=== PATIENT | female | born 1945 | race Caucasian/White ===

== ENCOUNTER 2018-08-13 05:47 | Inpatient (IN) ==
[2018-08-13] MEDS ORDERED: ceFAZolin 1,000 MG VIAL ONE (06:04)
[2018-08-13] MEDS ORDERED: VANCOMYCIN 1,000 MG VIAL ONE (06:04)
[2018-08-13] MEDS ORDERED: ROPIVACAINE 0.5% 30 ML VIAL ONE (06:30)
[2018-08-13] MEDS ORDERED: ceFAZolin 1,000 MG in SYRINGE 1 EACH IV ONE (06:30)
[2018-08-13] MEDS ORDERED: VANCOMYCIN INJ 1,000 MG in SODIUM CHLORIDE 0.9% 250 ML IV ONE (06:30)
[2018-08-13] MEDS: LACTATED RINGERS 1,000 ML IV SCH ×2 (06:35→08:31)
[2018-08-13] MEDS ORDERED: LACTULOSE 20 GM/30 ML UDCUP PO PRN (07:14)
[2018-08-13] MEDS ORDERED: MORPHINE 4 MG/1 ML VIAL IV PRN (07:14)
[2018-08-13] MEDS ORDERED: PROMETHAZINE 25 MG/1 ML VIAL IM PRN (07:14)
[2018-08-13] MEDS ORDERED: BISACODYL 10 MG SUPP RECTAL PRN (07:14)
[2018-08-13] MEDS ORDERED: MAGNESIUM HYDROXIDE SUSP 30 ML UDCUP PO PRN (07:14)
[2018-08-13] MEDS ORDERED: ONDANSETRON 4 MG/2 ML VIAL IV PRN (07:14)
[2018-08-13] MEDS ORDERED: NALOXONE 0.4 MG/ML VIAL IV PRN (07:14)
[2018-08-13] MEDS ORDERED: TEMAZEPAM 7.5 MG CAPSULE PO PRN (07:14)
[2018-08-13] MEDS ORDERED: diphenhydrAMINE CAP 25 MG CAPSULE PO PRN (07:14)
[2018-08-13] MEDS ORDERED: PROMETHAZINE 25 MG TABLET PO PRN ×2 (07:17)
[2018-08-13] MEDS ORDERED: TRANEXAMIC ACID 1,000 MG/10 ML VIAL ONE (07:45)
[2018-08-13] MEDS ORDERED: BUPIVACAINE SPINAL 0.75% 2 ML AMP SPINAL ONE (07:46)
[2018-08-13 08:36] LABS: Apearance,Urine CLEAR (Clear); Bilirubin,Urine Negative (Negative); Blood, Urine Negative (Negative); Glucose,Urine (UA) Negative (Negative); Ketones,Urine 5 mg/dL (Negative); Mucus,Urine Occasional /LPF (Occasional); Nitrite,Urine Negative (Negative); Protein,Urine Negative; RBC,Urine <1 /HPF (0-4); Urine Color Yellow (Yellow); Urine Specific Gravity 1.011 (1.001-1.035); Urine Urobilinogen < 2.0 EU/DL (0.2-1.0)
[2018-08-13] MEDS ORDERED: fentaNYL 100 MCG/2 ML VIAL ONE (09:12)
[2018-08-13] MEDS ORDERED: MIDAZOLAM 2 MG/2 ML VIAL ONE (09:12)
[2018-08-13] MEDS ORDERED: SEVOFLURANE 1 UNIT/15 MINUTE INH ONE (09:12)
[2018-08-13] MEDS ORDERED: PROPOFOL 200 MG/20 ML VIAL IV ONE ×2 (09:12→09:13)
[2018-08-13] MEDS ORDERED: LACTATED RINGERS 1,000 ML IV ONE (09:13)
[2018-08-13] MEDS ORDERED: PHENYLEPHRINE 1 MG/10 ML SYRINGE IV ONE (09:13)
[2018-08-13] MEDS ORDERED: GLYCOPYRROLATE 0.4 MG/2 ML VIAL ONE (09:13)
[2018-08-13] MEDS ORDERED: NEOSTIGMINE 10 MG/10 ML VIAL ONE (09:13)
[2018-08-13] MEDS ORDERED: ROCURONIUM 100 MG/10 ML VIAL IV ONE (09:13)
[2018-08-13] MEDS ORDERED: MORPHINE PCA 30 MG/30 ML SYRINGE IV ONE (09:29)
[2018-08-13] MEDS: MORPHINE PCA 30 MG/30 ML SYRINGE IV SCH (09:35)
[2018-08-13] MEDS: clonazePAM 0.5 MG TABLET PO SCH ×2 (10:13→20:30)
[2018-08-13] MEDS: FAMOTIDINE 20 MG TABLET PO SCH (10:13)
[2018-08-13] MEDS: METOPROLOL TARTRATE 25 MG TABLET PO SCH ×2 (10:14→20:30)
[2018-08-13] MEDS: DULoxetine 30 MG CAPSULE PO SCH (10:14)
[2018-08-13] MEDS: DOCUSATE SODIUM 100 MG CAPSULE PO SCH ×2 (10:14→20:30)
[2018-08-13] MEDS: SIMVASTATIN 40 MG TABLET PO SCH (10:14)
[2018-08-13] MEDS: FLUTICASONE 50 MCG NASAL SPRAY 16 GM BOTTLE BOTH NARES SCH (10:16)
[2018-08-13] MEDS: ceFAZolin 1,000 MG in SYRINGE 1 EACH IV SCH ×2 (14:00→22:44)
[2018-08-13] MEDS: FONDAPARINUX 2.5 MG/0.5 ML SYRINGE SUBCUT SCH (20:30)
[2018-08-13] MEDS: cloNIDine 0.1 MG TABLET PO SCH (20:30)
[2018-08-14] MEDS: LACTATED RINGERS 1,000 ML IV SCH ×2 (03:59→17:46)
[2018-08-14 05:45] LABS: Basophils # 0.1 10*3/uL (0.0-0.2); Basophils % 0.5 % (0.0-0.8); Eosinophils % 0.4 % (0.00-10.9); Hematocrit 27.1 VOL% (35.7-47.0); Immature Granulocytes % 0.4 %; Immature Granulocytes Absolute 0.04 #; Lymphocytes # 1.2 10*3/uL (1.4-4.0); Lymphocytes % 12.3 % (21.3-54.2); Mean Corpuscular HGB Conc 33.2 GM/DL (32-36); Mean Corpuscular Hemoglobin 32 PG (27-34); Mean Corpuscular Volume 97.1 FL (87-102); Mean Platelet Volume 10.1 FL (9.6-12.0); Monocytes # 1.2 10*3/uL (0.11-0.8); Monocytes % 12.6 % (1.7-12.7); Neutrophils # 7.2 10*3/uL (1.4-7.4); Neutrophils % 73.8 % (38.7-73.9); Platelet Count 263 T/CUMM (130-400); Red Blood Count 2.79 MC/CUMM (3.8-5.5); Red Cell Distribution Width 12.9 % (9.3-17.3); White Blood Count 9.7 T/CUMM (4-12)
[2018-08-14 06:05] LABS: Osmolality,Calculated 261.5 MOS/KG (273-304)
[2018-08-14] MEDS ORDERED: MORPHINE 4 MG/1 ML VIAL IV PRN ×2 (07:24→07:30)
[2018-08-14] MEDS: DULoxetine 30 MG CAPSULE PO SCH (09:13)
[2018-08-14] MEDS: DOCUSATE SODIUM 100 MG CAPSULE PO SCH ×2 (09:13→20:41)
[2018-08-14] MEDS: clonazePAM 0.5 MG TABLET PO SCH ×2 (09:14→20:41)
[2018-08-14] MEDS: FAMOTIDINE 20 MG TABLET PO SCH (09:15)
[2018-08-14] MEDS: METOPROLOL TARTRATE 25 MG TABLET PO SCH ×2 (09:15→20:41)
[2018-08-14] MEDS: FLUTICASONE 50 MCG NASAL SPRAY 16 GM BOTTLE BOTH NARES SCH (09:16)
[2018-08-14] MEDS: SIMVASTATIN 40 MG TABLET PO SCH (09:16)
[2018-08-14] MEDS: MORPHINE PCA 30 MG/30 ML SYRINGE IV SCH (11:35)
[2018-08-14] MEDS: FONDAPARINUX 2.5 MG/0.5 ML SYRINGE SUBCUT SCH (20:41)
[2018-08-14] MEDS: traZODone 50 MG TABLET PO PRN (20:41)
[2018-08-14] MEDS: cloNIDine 0.1 MG TABLET PO SCH (20:41)
[2018-08-15 05:37] LABS: Basophils % 0.3 % (0.0-0.8); Eosinophils % 0.1 % (0.00-10.9); Hematocrit 23.1 VOL% (35.7-47.0); Hemoglobin 7.9 GM/DL (12.0-16.0); Immature Granulocytes % 0.5 %; Immature Granulocytes Absolute 0.06 #; Lymphocytes # 0.7 10*3/uL (1.4-4.0); Lymphocytes % 6.1 % (21.3-54.2); Mean Corpuscular HGB Conc 34.2 GM/DL (32-36); Mean Corpuscular Hemoglobin 33 PG (27-34); Mean Corpuscular Volume 95.5 FL (87-102); Mean Platelet Volume 10.5 FL (9.6-12.0); Monocytes # 1.3 10*3/uL (0.11-0.8); Neutrophils # 9.6 10*3/uL (1.4-7.4); Platelet Count 233 T/CUMM (130-400); Red Blood Count 2.42 MC/CUMM (3.8-5.5); Red Cell Distribution Width 12.7 % (9.3-17.3); White Blood Count 11.7 T/CUMM (4-12)
[2018-08-15] MEDS: clonazePAM 0.5 MG TABLET PO SCH ×2 (08:49→21:07)
[2018-08-15] MEDS: DULoxetine 30 MG CAPSULE PO SCH (08:49)
[2018-08-15] MEDS: DOCUSATE SODIUM 100 MG CAPSULE PO SCH ×2 (08:49→21:08)
[2018-08-15] MEDS: METOPROLOL TARTRATE 25 MG TABLET PO SCH ×2 (08:49→21:08)
[2018-08-15] MEDS: FAMOTIDINE 20 MG TABLET PO SCH (08:49)
[2018-08-15] MEDS: SIMVASTATIN 40 MG TABLET PO SCH (08:50)
[2018-08-15] MEDS: FLUTICASONE 50 MCG NASAL SPRAY 16 GM BOTTLE BOTH NARES SCH (08:53)
[2018-08-15] MEDS ORDERED: SODIUM CHLORIDE 0.9% 1,000 ML IV PRN (10:39)
[2018-08-15] MEDS: LACTATED RINGERS 1,000 ML IV SCH (11:59)
[2018-08-15] MEDS: FONDAPARINUX 2.5 MG/0.5 ML SYRINGE SUBCUT SCH (21:07)
[2018-08-15] MEDS: cloNIDine 0.1 MG TABLET PO SCH (21:08)
[2018-08-15] MEDS: traZODone 50 MG TABLET PO PRN (21:08)
[2018-08-16 05:01] LABS: Basophils % 0.1 % (0.0-0.8); Eosinophils # 0.1 10*3/uL (0.0-0.87); Eosinophils % 0.8 % (0.00-10.9); Hematocrit 28.5 VOL% (35.7-47.0); Hemoglobin 9.8 GM/DL (12.0-16.0); Immature Granulocytes % 0.4 %; Immature Granulocytes Absolute 0.04 #; Lymphocytes # 0.9 10*3/uL (1.4-4.0); Lymphocytes % 9.5 % (21.3-54.2); Mean Corpuscular HGB Conc 34.4 GM/DL (32-36); Mean Corpuscular Hemoglobin 32 PG (27-34); Mean Corpuscular Volume 92.2 FL (87-102); Mean Platelet Volume 10.3 FL (9.6-12.0); Monocytes % 10.5 % (1.7-12.7); Neutrophils # 7.3 10*3/uL (1.4-7.4); Neutrophils % 78.7 % (38.7-73.9); Platelet Count 218 T/CUMM (130-400); Red Blood Count 3.09 MC/CUMM (3.8-5.5); Red Cell Distribution Width 13.5 % (9.3-17.3); White Blood Count 9.3 T/CUMM (4-12)
[2018-08-16] MEDS: METOPROLOL TARTRATE 25 MG TABLET PO SCH (09:29)
[2018-08-16] MEDS: DOCUSATE SODIUM 100 MG CAPSULE PO SCH (09:29)
[2018-08-16] MEDS: FAMOTIDINE 20 MG TABLET PO SCH (09:29)
[2018-08-16] MEDS: SIMVASTATIN 40 MG TABLET PO SCH (09:29)
[2018-08-16] MEDS: clonazePAM 0.5 MG TABLET PO SCH (09:29)
[2018-08-16] MEDS: DULoxetine 30 MG CAPSULE PO SCH (09:29)
[2018-08-16] MEDS: FLUTICASONE 50 MCG NASAL SPRAY 16 GM BOTTLE BOTH NARES SCH (09:37)
[2018-08-16 11:08] VITALS: BP 145/80
== END 2018-08-16 12:05 | disposition swing bed (61) | DRG 470 ==
LOC: N.SDSINP 05:47 → N.3E 09:24
PROVIDERS: ADMIT Orthopaedic Surgery; ATTEND Orthopaedic Surgery

== ENCOUNTER 2019-05-20 10:24 | Inpatient (IN) ==
[2019-05-20] MEDS ORDERED: ONDANSETRON 4 MG/2 ML VIAL IV PRN (11:41)
[2019-05-20] MEDS: SODIUM CHLORIDE 0.9% 1,000 ML IV SCH ×2 (12:38→22:42)
[2019-05-20 12:50] LABS: Basophils # 0.2 10*3/uL (0.0-0.2); Basophils % 0.7 % (0.0-0.8); Hemoglobin 11.7 GM/DL (12.0-16.0); Immature Granulocytes % 4.2 %; Immature Granulocytes Absolute 0.96 #; Lymphocytes # 0.4 10*3/uL (1.4-4.0); Lymphocytes % 1.9 % (21.3-54.2); Mean Corpuscular HGB Conc 34.4 GM/DL (32-36); Mean Corpuscular Volume 90.9 FL (87-102); Mean Platelet Volume 9.6 FL (9.6-12.0); Monocytes % 10.6 % (1.7-12.7); Neutrophils % 82.6 % (38.7-73.9); Platelet Count 356 T/CUMM (130-400); Red Blood Count 3.74 MC/CUMM (3.8-5.5); Red Cell Distribution Width 12.2 % (9.3-17.3); White Blood Count 22.8 T/CUMM (4-12)
[2019-05-20 13:11] LABS: Albumin 2.1 G/DL (3.4-5.0); Bilirubin,Total 0.7 MG/DL (0.2-1.0); Calcium 8.4 MG/DL (8.5-10.1); Osmolality,Calculated 260.4 MOS/KG (273-304); Total Protein 5.8 G/DL (6.4-8.3)
[2019-05-20 13:20] LABS: Band Neutrophils 1 % (0-10); Burr Cells Slight; Lymphocytes 1 % (20-55); Segmented Neutrophils 88 % (50-85); Total Cells Counted 100
[2019-05-20 13:21] LABS: Elliptocytes Few; Platelet Estimate Normal; Polychromasia Slight
[2019-05-21] MEDS: VANCOMYCIN 50 MG/ML 60 ML/BOTTLE PO SCH ×5 (00:04→23:40)
[2019-05-21 05:20] LABS: Basophils # 0.1 10*3/uL (0.0-0.2); Basophils % 0.6 % (0.0-0.8); Eosinophils # 0.1 10*3/uL (0.0-0.87); Eosinophils % 0.3 % (0.00-10.9); Hematocrit 29.2 VOL% (35.7-47.0); Hemoglobin 10.2 GM/DL (12.0-16.0); Immature Granulocytes % 3.5 %; Immature Granulocytes Absolute 0.61 #; Lymphocytes # 0.7 10*3/uL (1.4-4.0); Lymphocytes % 3.7 % (21.3-54.2); Mean Corpuscular HGB Conc 34.9 GM/DL (32-36); Mean Corpuscular Volume 90.7 FL (87-102); Mean Platelet Volume 9.6 FL (9.6-12.0); Neutrophils % 82.9 % (38.7-73.9); Platelet Count 349 T/CUMM (130-400); Red Blood Count 3.22 MC/CUMM (3.8-5.5); Red Cell Distribution Width 12.4 % (9.3-17.3); White Blood Count 17.5 T/CUMM (4-12)
[2019-05-21 05:41] LABS: Albumin 1.8 G/DL (3.4-5.0); Bilirubin,Total 0.8 MG/DL (0.2-1.0); Calcium 7.6 MG/DL (8.5-10.1); Osmolality,Calculated 263.8 MOS/KG (273-304); Risk Ratio 5.69; Total Protein 4.9 G/DL (6.4-8.3); VLDL CHOLESTEROL 27.6 MG/DL
[2019-05-21 05:44] LABS: Band Neutrophils 3 % (0-10); Lymphocytes 1 % (20-55); Segmented Neutrophils 89 % (50-85); Total Cells Counted 100
[2019-05-21 05:45] LABS: Platelet Estimate Normal; Polychromasia Few
[2019-05-21] MEDS: PANTOPRAZOLE 40 MG TABLET PO SCH (08:28)
[2019-05-21] MEDS: SODIUM CHLORIDE 0.9% 1,000 ML IV SCH ×2 (08:29→16:48)
[2019-05-22] MEDS: SODIUM CHLORIDE 0.9% 1,000 ML IV SCH ×2 (00:15→09:50)
[2019-05-22] MEDS: VANCOMYCIN 50 MG/ML 60 ML/BOTTLE PO SCH ×3 (07:00→18:02)
[2019-05-22 08:30] LABS: Basophils # 0.1 10*3/uL (0.0-0.2); Basophils % 0.5 % (0.0-0.8); Eosinophils % 0.2 % (0.00-10.9); Hematocrit 29.9 VOL% (35.7-47.0); Immature Granulocytes % 3.5 %; Immature Granulocytes Absolute 0.62 #; Lymphocytes # 0.6 10*3/uL (1.4-4.0); Lymphocytes % 3.6 % (21.3-54.2); Mean Corpuscular HGB Conc 33.4 GM/DL (32-36); Mean Corpuscular Volume 93.4 FL (87-102); Mean Platelet Volume 8.8 FL (9.6-12.0); Monocytes % 7.4 % (1.7-12.7); Neutrophils % 84.8 % (38.7-73.9); Platelet Count 371 T/CUMM (130-400); Red Cell Distribution Width 12.9 % (9.3-17.3); White Blood Count 17.6 T/CUMM (4-12)
[2019-05-22 08:45] LABS: Band Neutrophils 6 % (0-10); Hypochromasia 1+; Lymphocytes 3 % (20-55); Platelet Estimate Adequate; Segmented Neutrophils 84 % (50-85); Total Cells Counted 100
[2019-05-22 08:53] LABS: Albumin 1.6 G/DL (3.4-5.0); Bilirubin,Total 0.8 MG/DL (0.2-1.0); Calcium 7.2 MG/DL (8.5-10.1); Osmolality,Calculated 265.2 MOS/KG (273-304); Total Protein 4.8 G/DL (6.4-8.3)
[2019-05-22] MEDS: PANTOPRAZOLE 40 MG TABLET PO SCH (09:50)
[2019-05-22] MEDS: POTASSIUM CHLORIDE 20 MEQ TABLET PO PRN ×3 (16:04→22:08)
[2019-05-23] MEDS: VANCOMYCIN 50 MG/ML 60 ML/BOTTLE PO SCH ×4 (00:39→17:45)
[2019-05-23] MEDS: SODIUM CHLORIDE 0.9% 1,000 ML IV SCH ×4 (00:39→16:00)
[2019-05-23] MEDS: POTASSIUM CHLORIDE 20 MEQ TABLET PO PRN (00:44)
[2019-05-23 06:38] LABS: Basophils # 0.1 10*3/uL (0.0-0.2); Basophils % 0.6 % (0.0-0.8); Eosinophils # 0.1 10*3/uL (0.0-0.87); Eosinophils % 0.5 % (0.00-10.9); Hematocrit 28.8 VOL% (35.7-47.0); Hemoglobin 9.8 GM/DL (12.0-16.0); Immature Granulocytes % 4.4 %; Immature Granulocytes Absolute 0.63 #; Lymphocytes # 0.7 10*3/uL (1.4-4.0); Lymphocytes % 4.5 % (21.3-54.2); Mean Platelet Volume 8.8 FL (9.6-12.0); Monocytes % 10.8 % (1.7-12.7); Neutrophils % 79.2 % (38.7-73.9); Platelet Count 359 T/CUMM (130-400); Red Blood Count 3.13 MC/CUMM (3.8-5.5); White Blood Count 14.5 T/CUMM (4-12)
[2019-05-23 07:02] LABS: Band Neutrophils 6 % (0-10); Calcium 7.7 MG/DL (8.5-10.1); Eosinophils 2 % (0-10); Hypochromasia Slight; Lymphocytes 2 % (20-55); Osmolality,Calculated 273.5 MOS/KG (273-304); Platelet Estimate Adequate; Segmented Neutrophils 82 % (50-85); Total Cells Counted 100
[2019-05-23] MEDS: PANTOPRAZOLE 40 MG TABLET PO SCH (08:17)
[2019-05-23] MEDS ORDERED: TUBERCULIN SKIN TEST 0.1 ML SYRINGE INTRADERM ONE (12:41)
[2019-05-24] MEDS: SODIUM CHLORIDE 0.9% 1,000 ML IV SCH ×3 (00:23→15:33)
[2019-05-24] MEDS: VANCOMYCIN 50 MG/ML 60 ML/BOTTLE PO SCH ×4 (00:25→17:35)
[2019-05-24 06:39] LABS: Basophils # 0.1 10*3/uL (0.0-0.2); Basophils % 0.5 % (0.0-0.8); Eosinophils # 0.1 10*3/uL (0.0-0.87); Eosinophils % 0.8 % (0.00-10.9); Hematocrit 29.6 VOL% (35.7-47.0); Immature Granulocytes % 8.9 %; Immature Granulocytes Absolute 0.91 #; Lymphocytes # 0.8 10*3/uL (1.4-4.0); Lymphocytes % 7.8 % (21.3-54.2); Mean Corpuscular HGB Conc 33.8 GM/DL (32-36); Mean Corpuscular Volume 92.8 FL (87-102); Mean Platelet Volume 9.2 FL (9.6-12.0); Monocytes % 9.5 % (1.7-12.7); Neutrophils % 72.5 % (38.7-73.9); Platelet Count 453 T/CUMM (130-400); Red Blood Count 3.19 MC/CUMM (3.8-5.5); Red Cell Distribution Width 13.1 % (9.3-17.3); White Blood Count 10.2 T/CUMM (4-12)
[2019-05-24 06:46] LABS: Calcium 7.2 MG/DL (8.5-10.1); Osmolality,Calculated 273.4 MOS/KG (273-304)
[2019-05-24 07:03] LABS: Anisocytosis 1+; Band Neutrophils 35 % (0-10); Lymphocytes 4 % (20-55); Platelet Estimate Normal; Poikilocytosis 1+; Segmented Neutrophils 56 % (50-85); Total Cells Counted 100
[2019-05-24] MEDS ORDERED: MAGNESIUM SULF RIDER 4 GM in PREMIX 1 EACH IV PRN (07:13)
[2019-05-24] MEDS: PANTOPRAZOLE 40 MG TABLET PO SCH (09:03)
[2019-05-24] MEDS: POTASSIUM CHLORIDE 20 MEQ TABLET PO PRN ×4 (09:03→17:35)
[2019-05-24] MEDS: MAGNESIUM SULF RIDER 2 GM in PREMIX 1 EACH IV PRN ×2 (09:03→12:25)
[2019-05-24] MEDS: DULoxetine 30 MG CAPSULE PO SCH (12:16)
[2019-05-24] MEDS: amLODIPine 5 MG TABLET PO SCH (12:16)
[2019-05-24] MEDS: buPROPion XL 150 MG TABLET PO SCH (12:16)
[2019-05-24] MEDS: clonazePAM 0.5 MG TABLET PO SCH (21:15)
[2019-05-24] MEDS: cloNIDine 0.1 MG TABLET PO SCH (21:16)
[2019-05-25] MEDS: POTASSIUM CHLORIDE 20 MEQ TABLET PO PRN ×2 (01:06→04:59)
[2019-05-25] MEDS: SODIUM CHLORIDE 0.9% 1,000 ML IV SCH ×3 (01:06→22:21)
[2019-05-25] MEDS: VANCOMYCIN 50 MG/ML 60 ML/BOTTLE PO SCH ×4 (01:06→18:05)
[2019-05-25] MEDS: DULoxetine 30 MG CAPSULE PO SCH (08:50)
[2019-05-25] MEDS: clonazePAM 0.5 MG TABLET PO SCH ×2 (08:50→22:20)
[2019-05-25] MEDS: PANTOPRAZOLE 40 MG TABLET PO SCH (08:51)
[2019-05-25] MEDS: amLODIPine 5 MG TABLET PO SCH (08:51)
[2019-05-25] MEDS: buPROPion XL 150 MG TABLET PO SCH (08:52)
[2019-05-25] MEDS: cloNIDine 0.1 MG TABLET PO SCH (22:20)
[2019-05-26] MEDS: VANCOMYCIN 50 MG/ML 60 ML/BOTTLE PO SCH ×4 (01:12→17:26)
[2019-05-26 05:44] LABS: Basophils # 0.1 10*3/uL (0.0-0.2); Basophils % 0.6 % (0.0-0.8); Eosinophils # 0.2 10*3/uL (0.0-0.87); Eosinophils % 1.4 % (0.00-10.9); Hemoglobin 9.7 GM/DL (12.0-16.0); Immature Granulocytes % 8.6 %; Immature Granulocytes Absolute 0.97 #; Mean Corpuscular HGB Conc 33.4 GM/DL (32-36); Mean Corpuscular Volume 93.5 FL (87-102); Mean Platelet Volume 9.1 FL (9.6-12.0); Monocytes % 7.1 % (1.7-12.7); Neutrophils % 73.3 % (38.7-73.9); Platelet Count 522 T/CUMM (130-400); Red Cell Distribution Width 13.5 % (9.3-17.3); White Blood Count 11.2 T/CUMM (4-12)
[2019-05-26 06:09] LABS: Calcium 7.2 MG/DL (8.5-10.1); Osmolality,Calculated 272.5 MOS/KG (273-304)
[2019-05-26 07:30] LABS: Band Neutrophils 3 % (0-10); Lymphocytes 8 % (20-55); Segmented Neutrophils 84 % (50-85); Total Cells Counted 100
[2019-05-26 07:31] LABS: Hypochromasia 1+; Platelet Estimate Increased
[2019-05-26] MEDS: SODIUM CHLORIDE 0.9% 1,000 ML IV SCH ×2 (07:39→15:24)
[2019-05-26] MEDS ORDERED: SODIUM CHLORIDE 0.65% NASAL SPRAY 45 ML BOTTLE BOTH NARES PRN (08:45)
[2019-05-26] MEDS: CHOLESTYRAMINE 4 GM PACK PO SCH ×2 (09:51→22:45)
[2019-05-26] MEDS: POTASSIUM CHLORIDE 20 MEQ TABLET PO PRN (09:51)
[2019-05-26] MEDS: MAGNESIUM OXIDE 400 MG TABLET PO SCH ×2 (09:51→22:45)
[2019-05-26] MEDS: buPROPion XL 150 MG TABLET PO SCH (09:51)
[2019-05-26] MEDS: DULoxetine 30 MG CAPSULE PO SCH (09:51)
[2019-05-26] MEDS: clonazePAM 0.5 MG TABLET PO SCH ×2 (09:52→22:46)
[2019-05-26] MEDS: PANTOPRAZOLE 40 MG TABLET PO SCH (09:52)
[2019-05-26] MEDS: amLODIPine 5 MG TABLET PO SCH (09:52)
[2019-05-26] MEDS ORDERED: PSEUDOEPHEDRINE 30 MG TABLET PO PRN (16:47)
[2019-05-26] MEDS ORDERED: PANTOPRAZOLE 40 MG VIAL IV ONE (22:32)
[2019-05-26] MEDS: cloNIDine 0.1 MG TABLET PO SCH (22:46)
[2019-05-27] MEDS: VANCOMYCIN 50 MG/ML 60 ML/BOTTLE PO SCH ×4 (00:35→18:01)
[2019-05-27] MEDS ORDERED: ALBUTEROL/IPRATROPIUM 3 ML NEB RESP TX PRN (04:25)
[2019-05-27 05:10] LABS: Basophils # 0.1 10*3/uL (0.0-0.2); Basophils % 0.5 % (0.0-0.8); Eosinophils # 0.2 10*3/uL (0.0-0.87); Eosinophils % 1.7 % (0.00-10.9); Hematocrit 26.9 VOL% (35.7-47.0); Hemoglobin 9.1 GM/DL (12.0-16.0); Immature Granulocytes % 8.8 %; Immature Granulocytes Absolute 1.03 #; Lymphocytes # 1.1 10*3/uL (1.4-4.0); Lymphocytes % 9.3 % (21.3-54.2); Mean Corpuscular HGB Conc 33.8 GM/DL (32-36); Mean Corpuscular Volume 92.4 FL (87-102); Monocytes % 6.7 % (1.7-12.7); Platelet Count 489 T/CUMM (130-400); Red Blood Count 2.91 MC/CUMM (3.8-5.5); Red Cell Distribution Width 13.5 % (9.3-17.3); White Blood Count 11.7 T/CUMM (4-12)
[2019-05-27 05:25] LABS: Calcium 7.6 MG/DL (8.5-10.1); Osmolality,Calculated 268.8 MOS/KG (273-304)
[2019-05-27 05:43] LABS: Band Neutrophils 1 % (0-10); Eosinophils 1 % (0-10); Hypochromasia Slight; Lymphocytes 6 % (20-55); Ovalocytes Slight; Platelet Estimate Adequate; Segmented Neutrophils 84 % (50-85); Total Cells Counted 100
[2019-05-27] MEDS: PANTOPRAZOLE 40 MG TABLET PO SCH (09:35)
[2019-05-27] MEDS: buPROPion XL 150 MG TABLET PO SCH (09:35)
[2019-05-27] MEDS: MAGNESIUM OXIDE 400 MG TABLET PO SCH ×2 (09:35→21:35)
[2019-05-27] MEDS: DULoxetine 30 MG CAPSULE PO SCH (09:35)
[2019-05-27] MEDS: clonazePAM 0.5 MG TABLET PO SCH ×2 (09:35→21:35)
[2019-05-27] MEDS: amLODIPine 5 MG TABLET PO SCH (09:35)
[2019-05-27] MEDS: CHOLESTYRAMINE 4 GM PACK PO SCH ×2 (09:36→21:35)
[2019-05-27] MEDS: cloNIDine 0.1 MG TABLET PO SCH (21:35)
[2019-05-28] MEDS: VANCOMYCIN 50 MG/ML 60 ML/BOTTLE PO SCH ×3 (00:03→13:07)
[2019-05-28 05:29] LABS: Basophils % 0.3 % (0.0-0.8); Eosinophils # 0.2 10*3/uL (0.0-0.87); Eosinophils % 1.3 % (0.00-10.9); Hemoglobin 9.1 GM/DL (12.0-16.0); Immature Granulocytes % 8.8 %; Immature Granulocytes Absolute 1.08 #; Lymphocytes # 1.2 10*3/uL (1.4-4.0); Lymphocytes % 9.6 % (21.3-54.2); Mean Corpuscular HGB Conc 33.7 GM/DL (32-36); Mean Corpuscular Volume 93.4 FL (87-102); Monocytes % 6.6 % (1.7-12.7); Neutrophils % 73.4 % (38.7-73.9); Platelet Count 493 T/CUMM (130-400); Red Blood Count 2.89 MC/CUMM (3.8-5.5); Red Cell Distribution Width 13.5 % (9.3-17.3); White Blood Count 12.3 T/CUMM (4-12)
[2019-05-28 05:35] LABS: Calcium 7.3 MG/DL (8.5-10.1)
[2019-05-28 05:47] LABS: Platelet Estimate Adequate
[2019-05-28 05:48] LABS: Hypochromasia 1+
[2019-05-28 05:51] LABS: Band Neutrophils 3 % (0-10); Eosinophils 5 % (0-10); Lymphocytes 10 % (20-55); Segmented Neutrophils 78 % (50-85); Total Cells Counted 100
[2019-05-28] MEDS: buPROPion XL 150 MG TABLET PO SCH (08:34)
[2019-05-28] MEDS: clonazePAM 0.5 MG TABLET PO SCH (08:34)
[2019-05-28] MEDS: amLODIPine 5 MG TABLET PO SCH (08:34)
[2019-05-28] MEDS: DULoxetine 30 MG CAPSULE PO SCH (08:35)
[2019-05-28] MEDS: CHOLESTYRAMINE 4 GM PACK PO SCH (08:35)
[2019-05-28] MEDS: PANTOPRAZOLE 40 MG TABLET PO SCH (08:35)
[2019-05-28] MEDS: POTASSIUM CHLORIDE 20 MEQ TABLET PO PRN ×2 (08:35→10:32)
[2019-05-28] MEDS: MAGNESIUM OXIDE 400 MG TABLET PO SCH (08:35)
[2019-05-28 12:33] VITALS: BP 136/78
== END 2019-05-28 13:50 | DRG 372 ==
LOC: N.5E → SUATTDRO 10:47
PROVIDERS: ADMIT Family Medicine; ATTEND Internal Medicine

== ENCOUNTER 2019-06-01 21:37 | Inpatient (IN) ==
[2019-06-01 22:15] LABS: Basophils # 0.1 10*3/uL (0.0-0.2); Basophils % 0.6 % (0.0-0.8); Eosinophils # 0.1 10*3/uL (0.0-0.87); Hematocrit 26.2 VOL% (35.7-47.0); Hemoglobin 8.7 GM/DL (12.0-16.0); Immature Granulocytes Absolute 0.12 #; Lymphocytes # 1.3 10*3/uL (1.4-4.0); Lymphocytes % 10.4 % (21.3-54.2); Mean Corpuscular HGB Conc 33.2 GM/DL (32-36); Mean Corpuscular Volume 94.9 FL (87-102); Mean Platelet Volume 8.6 FL (9.6-12.0); Monocytes % 6.7 % (1.7-12.7); Neutrophils % 80.3 % (38.7-73.9); Platelet Count 467 T/CUMM (130-400); Red Blood Count 2.76 MC/CUMM (3.8-5.5); Red Cell Distribution Width 14.9 % (9.3-17.3); White Blood Count 12.4 T/CUMM (4-12)
[2019-06-01 22:21] LABS: PT Patient Result 10.8 SECS
[2019-06-01 22:30] LABS: Alanine Aminotransferase 11 U/L (13-56); Albumin 1.5 G/DL (3.4-5.0); Alkaline Phosphatase 60 U/L (45-117); Aspartate Amino Transferase 16 U/L (0-37); Bilirubin,Total < 0.39 MG/DL (0.2-1.0); Blood Urea Nitrogen 6 MG/DL (7-18); Calcium 7.7 MG/DL (8.5-10.1); Glucose 95 MG/DL (74-106); Osmolality,Calculated 270.8 MOS/KG (273-304); Total Protein 4.2 G/DL (6.4-8.3)
[2019-06-01 22:32] LABS: Troponin I 0.237 NG/ML (0.00-0.045)
[2019-06-01] MEDS ORDERED: ASPIRIN 325 MG TABLET PO STA (23:29)
[2019-06-02] MEDS ORDERED: VANCOMYCIN INJ 1,000 MG in SODIUM CHLORIDE 0.9% 250 ML IV STA ×2 (00:08→00:33)
[2019-06-02 00:19] LABS: Apearance,Urine CLEAR (Clear); Bilirubin,Urine Negative (Negative); Blood, Urine Negative (Negative); Glucose,Urine (UA) Negative (Negative); Ketones,Urine Negative (Negative); Nitrite,Urine Negative (Negative); Protein,Urine Negative; RBC,Urine <1 /HPF (0-4); Squamous Epithelial Cell,Urine Occasional /HPF (0-10); Urine Color Straw (Yellow); Urine Urobilinogen < 2.0 EU/DL (0.2-1.0); WBC,Urine 1 /HPF (0-6)
[2019-06-02] MEDS ORDERED: FUROSEMIDE 40 MG/4 ML VIAL IV STA (01:16)
[2019-06-02] MEDS ORDERED: ONDANSETRON 4 MG/2 ML VIAL IV PRN (03:15)
[2019-06-02] MEDS ORDERED: ACETAMINOPHEN 325 MG TABLET PO PRN (03:15)
[2019-06-02] MEDS ORDERED: ALBUTEROL/IPRATROPIUM 3 ML NEB RESP TX PRN (03:19)
[2019-06-02] MEDS: CEFTAROLINE 600 MG in SODIUM CHLORIDE 0.9% 100 ML IV SCH ×2 (04:27→16:42)
[2019-06-02] MEDS: CHOLECALCIFEROL 1,000 UNIT TABLET PO SCH (08:35)
[2019-06-02] MEDS: traZODone 50 MG TABLET PO SCH ×2 (08:35→21:32)
[2019-06-02] MEDS: CHOLESTYRAMINE 4 GM PACK PO SCH ×2 (08:35→21:30)
[2019-06-02] MEDS: buPROPion XL 150 MG TABLET PO SCH (08:36)
[2019-06-02] MEDS: DULoxetine 30 MG CAPSULE PO SCH (08:36)
[2019-06-02] MEDS: amLODIPine 5 MG TABLET PO SCH (08:37)
[2019-06-02] MEDS: clonazePAM 0.5 MG TABLET PO SCH ×2 (08:44→21:32)
[2019-06-02] MEDS: VANCOMYCIN 50 MG/ML 60 ML/BOTTLE PO SCH ×4 (08:45→21:31)
[2019-06-02] MEDS: MULTIVITAMIN LIQUID (CENTRUM) 60 ML BOTTLE PO SCH (08:45)
[2019-06-02 08:55] LABS: Basophils # 0.1 10*3/uL (0.0-0.2); Basophils % 0.7 % (0.0-0.8); Eosinophils # 0.1 10*3/uL (0.0-0.87); Eosinophils % 0.7 % (0.00-10.9); Hematocrit 29.8 VOL% (35.7-47.0); Hemoglobin 9.5 GM/DL (12.0-16.0); Immature Granulocytes % 1.1 %; Lymphocytes # 1.1 10*3/uL (1.4-4.0); Lymphocytes % 11.9 % (21.3-54.2); Mean Corpuscular HGB Conc 31.9 GM/DL (32-36); Mean Corpuscular Volume 96.1 FL (87-102); Mean Platelet Volume 8.9 FL (9.6-12.0); Monocytes % 7.5 % (1.7-12.7); Neutrophils % 78.1 % (38.7-73.9); Platelet Count 525 T/CUMM (130-400); White Blood Count 9.1 T/CUMM (4-12)
[2019-06-02] MEDS ORDERED: NON-FORMULARY MEDICATION (Esomeprazole Magnesium [Nexium] 40 MG) PO SCH (09:00)
[2019-06-02] MEDS ORDERED: PANTOPRAZOLE 40 MG TABLET PO SCH (09:00)
[2019-06-02 09:11] LABS: Hypochromasia 1+; Platelet Estimate Adequate
[2019-06-02 09:22] LABS: Albumin 1.7 G/DL (3.4-5.0); Bilirubin,Total 0.5 MG/DL (0.2-1.0); Calcium 7.7 MG/DL (8.5-10.1); Osmolality,Calculated 268.8 MOS/KG (273-304); Total Protein 4.8 G/DL (6.4-8.3)
[2019-06-02] MEDS: FUROSEMIDE 40 MG/4 ML VIAL IV SCH (16:41)
[2019-06-02] MEDS: ENOXAPARIN 40 MG/0.4 ML SYRINGE SUBCUT SCH (16:42)
[2019-06-02] MEDS ORDERED: POTASSIUM CHLORIDE 20 MEQ TABLET PO PRN (20:46)
[2019-06-02] MEDS: cloNIDine 0.1 MG TABLET PO SCH (21:32)
[2019-06-03] MEDS: CEFTAROLINE 600 MG in SODIUM CHLORIDE 0.9% 100 ML IV SCH ×2 (03:20→15:35)
[2019-06-03 05:13] LABS: Basophils % 0.5 % (0.0-0.8); Eosinophils # 0.1 10*3/uL (0.0-0.87); Eosinophils % 1.3 % (0.00-10.9); Hematocrit 24.4 VOL% (35.7-47.0); Hemoglobin 7.8 GM/DL (12.0-16.0); Immature Granulocytes % 0.8 %; Immature Granulocytes Absolute 0.07 #; Lymphocytes # 1.1 10*3/uL (1.4-4.0); Lymphocytes % 13.6 % (21.3-54.2); Mean Corpuscular Volume 94.9 FL (87-102); Mean Platelet Volume 8.9 FL (9.6-12.0); Monocytes % 8.5 % (1.7-12.7); Neutrophils % 75.3 % (38.7-73.9); Platelet Count 450 T/CUMM (130-400); Red Blood Count 2.57 MC/CUMM (3.8-5.5); Red Cell Distribution Width 14.9 % (9.3-17.3); White Blood Count 8.4 T/CUMM (4-12)
[2019-06-03 05:37] LABS: Calcium 7.6 MG/DL (8.5-10.1); Osmolality,Calculated 276.4 MOS/KG (273-304)
[2019-06-03] MEDS: VANCOMYCIN 50 MG/ML 60 ML/BOTTLE PO SCH ×4 (08:52→22:39)
[2019-06-03] MEDS: CHOLESTYRAMINE 4 GM PACK PO SCH ×2 (08:52→22:38)
[2019-06-03] MEDS: MULTIVITAMIN LIQUID (CENTRUM) 60 ML BOTTLE PO SCH (08:52)
[2019-06-03] MEDS: clonazePAM 0.5 MG TABLET PO SCH ×2 (08:53→22:38)
[2019-06-03] MEDS: CHOLECALCIFEROL 1,000 UNIT TABLET PO SCH (08:53)
[2019-06-03] MEDS: traZODone 50 MG TABLET PO SCH ×2 (08:53→22:38)
[2019-06-03] MEDS: buPROPion XL 150 MG TABLET PO SCH (08:53)
[2019-06-03] MEDS: FUROSEMIDE 40 MG/4 ML VIAL IV SCH (08:54)
[2019-06-03] MEDS: DULoxetine 30 MG CAPSULE PO SCH (08:54)
[2019-06-03] MEDS: PANTOPRAZOLE 40 MG TABLET PO SCH (08:55)
[2019-06-03] MEDS: amLODIPine 5 MG TABLET PO SCH (08:55)
[2019-06-03] MEDS: ENOXAPARIN 40 MG/0.4 ML SYRINGE SUBCUT SCH (14:08)
[2019-06-03] MEDS: cloNIDine 0.1 MG TABLET PO SCH (22:39)
[2019-06-04] MEDS: CEFTAROLINE 600 MG in SODIUM CHLORIDE 0.9% 100 ML IV SCH ×2 (05:56→18:16)
[2019-06-04] MEDS: clonazePAM 0.5 MG TABLET PO SCH ×2 (11:09→20:50)
[2019-06-04] MEDS: CHOLECALCIFEROL 1,000 UNIT TABLET PO SCH (11:09)
[2019-06-04] MEDS: DULoxetine 30 MG CAPSULE PO SCH (11:10)
[2019-06-04] MEDS: buPROPion XL 150 MG TABLET PO SCH (11:10)
[2019-06-04] MEDS: traZODone 50 MG TABLET PO SCH ×2 (11:11→20:50)
[2019-06-04] MEDS: PANTOPRAZOLE 40 MG TABLET PO SCH (11:12)
[2019-06-04] MEDS: amLODIPine 5 MG TABLET PO SCH (11:12)
[2019-06-04] MEDS: CHOLESTYRAMINE 4 GM PACK PO SCH ×2 (11:13→20:51)
[2019-06-04] MEDS: MULTIVITAMIN LIQUID (CENTRUM) 60 ML BOTTLE PO SCH (11:15)
[2019-06-04] MEDS: FUROSEMIDE 40 MG/4 ML VIAL IV SCH (11:20)
[2019-06-04] MEDS: VANCOMYCIN 50 MG/ML 60 ML/BOTTLE PO SCH ×4 (11:37→20:53)
[2019-06-04] MEDS: ENOXAPARIN 40 MG/0.4 ML SYRINGE SUBCUT SCH (15:56)
[2019-06-04] MEDS: cloNIDine 0.1 MG TABLET PO SCH (20:50)
[2019-06-05 06:22] LABS: Basophils # 0.1 10*3/uL (0.0-0.2); Basophils % 0.8 % (0.0-0.8); Eosinophils # 0.2 10*3/uL (0.0-0.87); Eosinophils % 3.5 % (0.00-10.9); Hematocrit 23.7 VOL% (35.7-47.0); Hemoglobin 7.6 GM/DL (12.0-16.0); Immature Granulocytes % 0.8 %; Immature Granulocytes Absolute 0.05 #; Lymphocytes % 16.4 % (21.3-54.2); Mean Corpuscular HGB Conc 32.1 GM/DL (32-36); Mean Platelet Volume 8.9 FL (9.6-12.0); Monocytes % 11.8 % (1.7-12.7); Neutrophils % 66.7 % (38.7-73.9); Platelet Count 395 T/CUMM (130-400); Red Blood Count 2.47 MC/CUMM (3.8-5.5); Red Cell Distribution Width 15.3 % (9.3-17.3)
[2019-06-05 06:38] LABS: Calcium 8.1 MG/DL (8.5-10.1); Osmolality,Calculated 270.7 MOS/KG (273-304)
[2019-06-05 06:42] LABS: % Iron Saturation 21.5 % (18-50); Ferritin 135.1 ng/ml (8-252)
[2019-06-05] MEDS: CEFTAROLINE 600 MG in SODIUM CHLORIDE 0.9% 100 ML IV SCH (06:48)
[2019-06-05] MEDS ORDERED: ACETAMINOPHEN 325 MG TABLET PO PRN (08:42)
[2019-06-05] MEDS ORDERED: SODIUM CHLORIDE 0.9% 1,000 ML IV PRN (08:42)
[2019-06-05] MEDS ORDERED: FUROSEMIDE 20 MG/2 ML VIAL IV SCH (09:00)
[2019-06-05] MEDS ORDERED: FUROSEMIDE 40 MG/4 ML VIAL IV SCH (09:00)
[2019-06-05] MEDS ORDERED: diphenhydrAMINE 50 MG/1 ML VIAL IV SCH (09:00)
[2019-06-05 09:16] LABS: Folate 8.5 NG/ML (5.4-24.0)
[2019-06-05] MEDS ORDERED: IRON SUCROSE 300 MG in SODIUM CHLORIDE 0.9% 100 ML IV ONE (10:00)
[2019-06-05] MEDS: clonazePAM 0.5 MG TABLET PO SCH (10:41)
[2019-06-05] MEDS: buPROPion XL 150 MG TABLET PO SCH (10:41)
[2019-06-05] MEDS: CHOLECALCIFEROL 1,000 UNIT TABLET PO SCH (10:42)
[2019-06-05] MEDS: DULoxetine 30 MG CAPSULE PO SCH (10:42)
[2019-06-05] MEDS: PANTOPRAZOLE 40 MG TABLET PO SCH (10:43)
[2019-06-05] MEDS: amLODIPine 5 MG TABLET PO SCH (10:43)
[2019-06-05] MEDS: CHOLESTYRAMINE 4 GM PACK PO SCH (10:44)
[2019-06-05] MEDS: VANCOMYCIN 50 MG/ML 60 ML/BOTTLE PO SCH ×2 (10:46→15:45)
[2019-06-05] MEDS: MULTIVITAMIN LIQUID (CENTRUM) 60 ML BOTTLE PO SCH (10:51)
[2019-06-05] MEDS: traZODone 50 MG TABLET PO SCH (10:52)
[2019-06-05 11:28] VITALS: BP 139/78
[2019-06-05] MEDS: ENOXAPARIN 40 MG/0.4 ML SYRINGE SUBCUT SCH (15:45)
== END 2019-06-05 15:43 | disposition swing bed (61) | DRG 603 ==
LOC: EDBD → EDUNIT# → N.ED 21:37 → SUATTDRO 06-02 02:01 → N.EDINP 06-02 02:01 → N.3E 06-02 02:32
PROVIDERS: ADMIT Family Medicine; ATTEND Internal Medicine